=== PATIENT | female | born 1940 | race Caucasian/White ===

== ENCOUNTER → 2017-06-23 | Outpatient (CLI) | payer OTHER ==
[~2017-06-23] MED LIST: APAP/HYDROCODON1 T13 PO; CARAFATE1 GM PO; CLONIDINE0.1 M1 PO; HEP5I SC; IPRATROPIUM BROM3 M2 HHN; LEVOFLOXACIN500 M1 PO; MEDDP PO; NIFEDIAC CC PO; PANTOPRAZOLE SO40 M1 PO; PHEDML PO; PRI20 PO; SIMVASTATIN20 M1 PO; SPIRIVA18 MC1; SYMBICORT1 AE2; XAN5 PO; ZOFI IV
== END | disposition home or self-care (01) ==
LOC: RD 15:53
DX: J20.9 Acute bronchitis, unspecified (principal); R05 Cough

== ENCOUNTER 2017-12-24 11:57 | Emergency (ER) | payer OTHER ==
[~2017-12-24] VITALS: Ht 160 cm; Wt 47.8 kg
[2017-12-24 12:16] VITALS: Ht 160 cm; Wt 47.8 kg
[2017-12-24 13:26] LABS: BASOPHIL % 0.4 % (0-2); PLATELET COUNT 179 x10^3mcL (130-400); RED CELL DISTRIBUTION WIDTH 14.2 % (11.5-14.5)
[2017-12-24 13:35] LABS: CALCIUM 8.9 mg/dL (8.5-10.1); CARBON DIOXIDE 27.3 mmol/L (21-32); CHLORIDE SERUM 102 mmol/L (98-107); CREATININE SERUM 0.8 mg/dL (0.6-1.0); GLUCOSE SERUM 103 mg/dL (74-106); POTASSIUM SERUM 4.3 mmol/L (3.5-5.1); SODIUM SERUM 138 mmol/L (136-145)
[2017-12-24 13:40] LABS: ALBUMIN 3.7 g/dL (3.4-5.0); ALKALINE PHOSPHATASE 65 U/L (46-116); ALT/SGPT 18 U/L (14-59); AST/SGOT 18 U/L (15-37); BILIRUBIN TOTAL 0.4 mg/dL (0.20-1.00); TOTAL PROTEIN, SERUM 7.2 g/dL (6.4-8.2)
[2017-12-24 13:54] LABS: CHOLESTEROL 229 mg/dL (<200); HDL CHOLESTEROL 120 mg/dL (40-60)
[2017-12-24 14:01] LABS: microscopic required? NO
[2017-12-24 14:34] LABS: UA SPECIFIC GRAVITY <=1.005 (1.005-1.035); urine erythrocyte NEGATIVE (NEGATIVE)
[2017-12-24 16:09] VITALS: BP 155/94
== END 2017-12-24 16:09 | disposition home or self-care (01) ==
LOC: ED 11:57
PROVIDERS: Emergency Medicine
DX: J44.1 Chronic obstructive pulmonary disease with (acute) exacerbation (principal); I10 Essential (primary) hypertension; E78.00 Pure hypercholesterolemia, unspecified; R11.2 Nausea with vomiting, unspecified; Z90.49 Acquired absence of other specified parts of digestive tract; Z88.1 Allergy status to other antibiotic agents; Z88.3 Allergy status to other anti-infective agents
CPT/HCPCS: 83880; J2405; J7030; Q0092

== ENCOUNTER 2018-08-31 15:35 | Inpatient (IN) | payer OTHER ==
[~2018-08-31] VITALS: Ht 160 cm; Wt 53.7 kg
[2018-08-31 16:00] VITALS: Ht 160 cm; Wt 53.7 kg
--- NOTE | 2018-08-31 16:33 | NUR ---
PT HERE FOR C/O SOB. PT HAS HX OF COPD. PT STATES SHE HAS BEEN SICK THE LAST FEW DAYS AND HAS BEEN USING HER NEBULIZER AT HOME AND USED HER ALBUTEROL INHALER BEFORE SHE CAME IN AND SAID THAT IT PROVIDED SOME RELIEF. PT HAS EQUAL AND UNLABORED CHEST RISE. NO DISTRESS NOTED AT THIS TIME. DAUGHTER AT BEDSIDE. O2 SAT AT 96% RA
--- NOTE | 2018-08-31 16:38 | NUR ---
PT AMBULATING TO RESTROOM WITH DAUGHTER FOR URINE SPECIMEN.
[2018-08-31 17:40] LABS: UA SPECIFIC GRAVITY <=1.005 (1.005-1.035); microscopic required? YES; urine erythrocyte TRACE (NEGATIVE)
--- NOTE | 2018-08-31 17:49 | NUR ---
PT REQUESTED TO USE RESTROOM PRIOR TO IV ESTABLISHMENT.PT ALLOWED LAB TO DRAW LABS
[2018-08-31 18:16] LABS: BASOPHIL % 0.3 % (0-2); PLATELET COUNT 147 x10^3mcL (130-400)
[2018-08-31 18:18] LABS: CALCIUM 8.6 mg/dL (8.5-10.1); CHLORIDE SERUM 106 mmol/L (98-107); CREATININE SERUM 0.7 mg/dL (0.6-1.0); GLUCOSE SERUM 78 mg/dL (74-106); POTASSIUM SERUM 4.3 mmol/L (3.5-5.1); SODIUM SERUM 139 mmol/L (136-145)
[2018-08-31 18:23] LABS: ALBUMIN 3.1 g/dL (3.4-5.0); ALKALINE PHOSPHATASE 51 U/L (46-116); ALT/SGPT 16 U/L (14-59); AST/SGOT 16 U/L (15-37); BILIRUBIN TOTAL 0.3 mg/dL (0.20-1.00); TOTAL PROTEIN, SERUM 6.5 g/dL (6.4-8.2)
--- NOTE | 2018-08-31 18:30 | NUR ---
LYING IN GURNEY WITH DAUGHTER AT BEDSIDE. HOB UP 45 DEG. CALL LIGHT REMAINS IN REACH
--- NOTE | 2018-08-31 19:14 | NUR ---
REPORT GIVEN TO SHANEKA LEE
[2018-08-31] MEDS ORDERED: VENTOLIN H0.09 MG/A1 INH (20:21)
[2018-08-31] MEDS ORDERED: FLUOXETINE HYDR20 M2 PO (20:22)
[2018-08-31] MEDS ORDERED: RANITIDINE HCL300 MG PO (20:24)
[2018-08-31] MEDS ORDERED: EVISTA60 MG PO (20:25)
--- NOTE | 2018-08-31 20:35 | NUR ---
AZITHROMYCIN ABX HELD DUE TO ERYTHROMYCIN ALLERGY. DR SHER CRAVEN.
--- NOTE | 2018-08-31 20:43 | NUR ---
PT REPORT CALLED TO SEUN LEE TO ASSUME PT CARE.
[2018-08-31 21:19] LABS: CHOLESTEROL/HDL RATIO 1.8; PHOSPHOROUS 2.7 mg/dL (2.5-4.9)
[2018-08-31 21:29] LABS: T3 TOTAL 1.17 ng/mL
[2018-08-31 21:30] LABS: FREE T4 1.02 ng/dL (0.76-1.46)
--- NOTE | 2018-08-31 22:05 | NUR ---
PT GIVEN AZITHROMYCIN ORDER PER DR OLIVAREZ AND OK FROM PT. PT ALLERGY TO ERYTHROMYCIN IS ACTUALLY ADVERSE REACTION OF VOMITING. PT AWARE OF POTENTIAL SIDE EFFECTS AND OK TO GIVE MEDICATION.
--- NOTE | 2018-08-31 22:08 | NUR ---
PT TRANSFERRED TO [address] BY [facility] BY TIANA RN AND JAYY EMT. PT ON SUPPLY CHAIN DEVELOPMENT MANAGER FOR TRANSPORT. PT AOX4, RESP EVEN AND UNLABORED, NO ACUTE DISTRESS NOTED. PT ACCEPTED BY SEUN FOR BEDSIDE HANDOFF.
[2018-08-31 22:49] VITALS: BP 142/85
--- NOTE | 2018-08-31 22:52 | NUR ---
RECEIVED PT FROM ED VIA BORIS. ORIENTED PT TO ROOM AND SURROUNDINGS. IV NOTED TO LFA PATENT AND INTACT. TELE 21 PLACED ON PT READING ST WITH PACS. INSTRUCTED PT ON THE USE OF CALL LIGHT FOR ASSISATNCE. ENDORSED PT TO PRIMARY NURSE SEUN
[2018-08-31 22:57] VITALS: BP 142/85
--- NOTE | 2018-08-31 23:04 | NUR ---
PT REPORTS TAKING 0.5MG XANAX AT HOME. DR. LINDSEY MADE AWARE. PT CURRENTLY EXPERIENCING SOME ANXIETY, WILL WAIT FOR ORDERS.
--- NOTE | 2018-09-01 00:09 | NUR ---
PT RESTING IN BED WITH EYES CLOSED. NO INDICATIONS OF PAIN. BREATHING E/U ON 2L OXYGEN NC. CALL LIGHT WITHIN REACH. DAUGHTER AT BEDSIDE. WILL CONTINUE TO MONITOR.
[2018-09-01 05:15] VITALS: BP 111/49
[2018-09-01 06:00] LABS: BASOPHIL % 0.3 % (0-2); PLATELET COUNT 152 x10^3mcL (130-400); RED CELL DISTRIBUTION WIDTH 13.7 % (11.5-14.5)
--- NOTE | 2018-09-01 06:06 | NUR ---
PT HAD RESTFUL NIGHT. DAUGHTER REMAINS AT BEDSIDE. NO CHANGES OVERNIGHT. BREATHING E/U ON 2L OXYGEN NC. NO SIGNS OF PAIN NOTED. ALL NEEDS MET AND ATTENDED TO. CALL LIGHT WITHIN REACH. WILL CONTINUE TO MONITOR.
[2018-09-01 06:24] LABS: CALCIUM 8.3 mg/dL (8.5-10.1); CARBON DIOXIDE 25.4 mmol/L (21-32); CHLORIDE SERUM 109 mmol/L (98-107); CREATININE SERUM 0.7 mg/dL (0.6-1.0); GLUCOSE SERUM 155 mg/dL (74-106); MAGNESIUM 1.9 mg/dL (1.8-2.4); PHOSPHOROUS 3.1 mg/dL (2.5-4.9); POTASSIUM SERUM 3.9 mmol/L (3.5-5.1); SODIUM SERUM 142 mmol/L (136-145)
--- NOTE | 2018-09-01 07:36 | NUR ---
RECEIVED AWAKE, ALERT AND ORIENTED. IN NO ACUTE RESP. DISTRESS. NO C/O PAIN OR DISCOMFORT. CALL LIGHT WITHIN REACH. WILL CONTINUE WITH PLAN OF CARE.
--- NOTE | 2018-09-01 09:24 | NUR ---
C/O NAUSEA, NO VOMITING. MEDICATED WITH ZOFRAN.
[2018-09-01 09:48] VITALS: BP 133/65
--- NOTE | 2018-09-01 13:07 | NUR ---
TRISHA. FAIRLY WITH LUNCH, NO C/O N/V AT THIS TIME. PT IN NO DISTRESS. REPORTED NO PAIN OR DISCOMFORT.
[2018-09-01 13:15] VITALS: BP 127/53
--- NOTE | 2018-09-01 15:16 | NUR ---
PATIENT WAS SLEEPING IN BED. NO DISTRESS NOTED. WILL CONTINUE TO MONITOR.
--- NOTE | 2018-09-01 16:15 | NUR ---
PT C/O DRY COUGH, MEDICATED WITH ROBITUSSIN W/COD PER ORDER. NO ACUTE RESP. DISTRESS NOTED AT THIS TIME.
[2018-09-01 18:27] VITALS: BP 136/62
--- NOTE | 2018-09-01 18:54 | NUR ---
PT REPORTED FAIR RELIEF OF COUGH. REMAINS IN NO ACUTE DISTRESS. AWAKE, ALERT. NO C/O PAIN OR DISCOMFORT AT THIS TIME. HL PATENT. CALL LIGHT WITHIN REACH. WILL BE ENDORSED TO INCOMING SHIFT.
--- NOTE | 2018-09-01 19:41 | NUR ---
RECEIVED PT FROM ROSA NUÑEZ. RESP EQUAL AND UNLABORED, NO REPORTS OF CP OR SOB. INSTRUCTED PT ON THE USE OF CALL LIGHT FOR ASSISTANCE. BED IN LOWEST POSITION AND SIDE RAILS UPX 2
[2018-09-01 21:46] VITALS: BP 131/63
--- NOTE | 2018-09-02 00:26 | NUR ---
IN BED WITH EYES CLOSED. RESP EQUAL AND UNLABORED, NO DISTRESS NOTED. WILL CONTINUE TO MONITOR
--- NOTE | 2018-09-02 04:29 | NUR ---
RECEIVED PT REPORT. PT SEEN REST ON BED. COMPLAIN OF NAUSEA. WILL PROVIDE MED PER ORDER. PT BREATHING ON RA, EVEN, UNLABORED. IV SITE SALINE LOCK AT THIS TIME.
[2018-09-02 05:44] VITALS: BP 122/62
[2018-09-02 06:55] LABS: CALCIUM 7.8 mg/dL (8.5-10.1); CARBON DIOXIDE 26.3 mmol/L (21-32); CHLORIDE SERUM 108 mmol/L (98-107); CREATININE SERUM 0.6 mg/dL (0.6-1.0); GLUCOSE SERUM 93 mg/dL (74-106); PHOSPHOROUS 3.2 mg/dL (2.5-4.9); POTASSIUM SERUM 4.3 mmol/L (3.5-5.1); SODIUM SERUM 142 mmol/L (136-145)
[2018-09-02 07:15] LABS: BASOPHIL % 0.4 % (0-2); PLATELET COUNT 148 x10^3mcL (130-400); RED CELL DISTRIBUTION WIDTH 14.2 % (11.5-14.5)
--- NOTE | 2018-09-02 07:32 | NUR ---
PT REPORTED AFTER LAST DOSE IV MED SHE STARTED FEELING NAUSEA. ZOFRAN RESOLVE SOME NAUSEA. PT REPORT SHAKING HANDS. PT'S GLUCOSE CHECK 88, ORANGE JUICE GIVEN. PT'S VS: 156/77, HR 86 BPM, TEMP 99.2, O2 SAT 92% ON RA. PT ASK FOR ANXIET MED, WILL GIVE PER ORDER. PT ALSO REQUIRE HER HOME MED PROTONIX AND SUCRALFATE. CALLED AND MADE MACHINE ASSISTANT JILLIAN AWARE ABOUT PT'S CONDITION AND OBTAINED TELEPHONE ORDER PROTONIC 20MG IV, SUCRALFATE 1GM. WILL CONTINUE TO MONITOR.
[2018-09-02 07:47] VITALS: BP 156/77
[2018-09-02 09:08] VITALS: BP 138/87
--- NOTE | 2018-09-02 10:29 | NUR ---
OLD IV LEAKING, NEW IV INSERTED ON RFA, PATENT. PT TOLERATE WELL. SALINE LOCK PER ORDER AT THIS TIME.
[2018-09-02 12:55] VITALS: BP 128/66
[2018-09-02 17:35] VITALS: BP 138/88
--- NOTE | 2018-09-02 18:34 | NUR ---
PT REST ON BED, PT STATED HER NAUSEA GOING AWAY. NO COMPLAIN OF SOB. PT BREATHING ON RA /O2 2L VIA NC. MILD SHANKING HAND NOTED. PT STATED THIS HAPPEN SOMETIMES. IV SITE PATENT, INTACT. SALINE LOCK PER ORDER. WILL ENDORSE PT'S CARE TO COMING NURSE.
--- NOTE | 2018-09-02 19:23 | NUR ---
PT REST ON BED, BREATHING ON RA, NO COMPLAIN OF SOB. ENDORSE PT CARE TO RECEIVING NURSE.
--- NOTE | 2018-09-02 19:40 | NUR ---
PT. AWAKE, ALERT, ORIENTED X4. DENIES HEADACHE OR DIZZINESS AT THIS TIME. PT. ON 2L/NC. RESP. EVEN, UNLABORED. PT. STATED THAT SHE SOMETIMES GETS SOB W/ INCREASED ACTIVITY OR WHEN SHE GETS OOB TO GO BRP. BREATH SOUNDS DIMINISHED HIEU. PT. NSR W/ OCCASSIONAL PAC. DENIES CHESTPAIN, TELE #21. NO EDEMA NOTED TO EXTREMITIES. PEDAL PULSES MODERATE. IV SITE HEPLOCKED RFA. CALL LIGHT WITHIN REACH.
[2018-09-02 20:36] VITALS: BP 137/75
--- NOTE | 2018-09-03 00:25 | NUR ---
PT. W/ EYES CLOSED, APPEARS TO BE SLEEPING. CALL LIGHT REMAINS WITHIN REACH. WILL CONTINUE TO MONITOR.
[2018-09-03 05:19] VITALS: BP 153/65
--- NOTE | 2018-09-03 06:20 | NUR ---
PT. RESTING QUIETLY. REMAINS ON 2L/NC. NO RESP. DISTRESS THROUGHOUT THE NIGHT. IV SITE INTACT. CALL LIGHT WITHIN REACH. WILL ENDORSE PT. CARE TO INCOMING NURSE.
--- NOTE | 2018-09-03 07:30 | NUR ---
RECEIVED PATIENT AWAKE AND ALERT AND ORIENTED. MO C/O OF SOB NOTED THIS MORNING.MONITOR SHOWS #21 ST 102. NO C/O OF CHEST PAIN AT THIS TIME.
[2018-09-03 07:45] LABS: BASOPHIL % 0.5 % (0-2); PLATELET COUNT 158 x10^3mcL (130-400)
[2018-09-03 08:11] LABS: CALCIUM 8.5 mg/dL (8.5-10.1); CARBON DIOXIDE 30.3 mmol/L (21-32); CHLORIDE SERUM 108 mmol/L (98-107); CREATININE SERUM 0.6 mg/dL (0.6-1.0); GLUCOSE SERUM 97 mg/dL (74-106); MAGNESIUM 2.1 mg/dL (1.8-2.4); POTASSIUM SERUM 4.2 mmol/L (3.5-5.1); SODIUM SERUM 144 mmol/L (136-145)
--- NOTE | 2018-09-03 09:00 | NUR ---
SEEN BY THIS MORNING AND WANTS TO WEAN HER O2 AT 2L TO 1L. TOLD DR. WHITMORE THAT SHE'S O2 AT 2L AT HOME AND NEEDED AND AT NIGHT.
--- NOTE | 2018-09-03 09:05 | NUR ---
REGIS ZAVALA MADE AWARE THAT LAB CALLED PER JACK THAT HER WBC WENT DOWN TO 3.7 FROM 4.9 AND SHE'S ON SEPSIS PROTOCOL AND V/S STABLE.
--- NOTE | 2018-09-03 09:27 | NUR ---
BREATHING GIVEN BY RT AND PER RT SHE'S SAT AT 94% AT 1L N/C.
[2018-09-03 10:13] VITALS: BP 134/52
--- NOTE | 2018-09-03 11:30 | NUR ---
REPORT GIVEN TO LUARY LEE FOR CONTINUED CARE.
[2018-09-03 14:17] VITALS: BP 127/54
--- NOTE | 2018-09-03 15:30 | NUR ---
PT RESTING AT THIS TIME. DENIES ANY DISCOMFORT. CALL LIGTH IN REACH NEEDS ATTENDED TO.
[2018-09-03 15:44] VITALS: BP 127/54
[2018-09-03 17:20] VITALS: BP 110/49
--- NOTE | 2018-09-03 18:02 | NUR ---
PT RESTING AT THIS TIME. DENIES ANY DISCOMFORT. CALL LIGHT IN REACH NEEDS ATTENDED TO.
--- NOTE | 2018-09-03 19:17 | NUR ---
PT. AWAKE, ALERT, ORIENTED X4. DENIES HEADACHE OR DIZZINESS. PT. ON 2L/NC AT THIS TIME. BREATH SOUNDS CLEAR THROUGHOUT LUNG [place], BLL DIMINISHED. RESP. EVEN, UNLABORED. NO SOB NOTED. DENIES CHESTPAIN OR DISCOMFORT. NSR ON TELE 21. DENIES CHESTPAIN OR DISCOMFORT. TRACE EDEMA NOTED TO BLE. PEDAL PULSES MODERATE. IV HEPLOCKED, SITE INTACT. CALL LIGHT WITHIN REACH.
[2018-09-03 21:50] VITALS: BP 135/62
--- NOTE | 2018-09-04 00:52 | NUR ---
PT. RESTING QUIETLY. EYES CLOSED AND APPEARS TO BE SLEEPING. CALL LIGHT REMAINS WITHIN REACH.
[2018-09-04 05:30] VITALS: BP 119/57
--- NOTE | 2018-09-04 06:37 | NUR ---
PT. HAD UNEVENTFUL NIGHT. NO RESP. DISTRESS. USES NC AT 1L NEEDED. PT. COMFORTABLE THIS MORNING. IV SITE REMAINS INTACT. CALL LIGHT WITHIN REACH. WILL ENDORSE PT. CARE TO INCOMING NURSE.
[2018-09-04 07:00] LABS: BASOPHIL % 0.7 % (0-2); PLATELET COUNT 156 x10^3mcL (130-400); RED CELL DISTRIBUTION WIDTH 14.2 % (11.5-14.5)
[2018-09-04 07:17] LABS: CALCIUM 8.7 mg/dL (8.5-10.1); CARBON DIOXIDE 31.4 mmol/L (21-32); CHLORIDE SERUM 106 mmol/L (98-107); CREATININE SERUM 0.8 mg/dL (0.6-1.0); GLUCOSE SERUM 86 mg/dL (74-106); POTASSIUM SERUM 4.8 mmol/L (3.5-5.1); SODIUM SERUM 140 mmol/L (136-145)
--- NOTE | 2018-09-04 07:30 | NUR ---
PT ENDORSE TO ME THIS MORNING. LAYING IN BED RESTING. AA/O X4 BREATHING EVEN AND UNLABORED ON 1L NC AT TIMES RA. DENIES ANY SOB/ NO ACUTE RESP DISTRESS NOTED. TELE 21 HR 79/ SR. DENIE ANY CP OR PRESSURE. GEN WEAKNESS / AMB / KNOWS TO CALL FOR ASSIST. VOIDS FREELY. CARMINA SOUNDS ACTIVE IN ALL FOUR QUADS. IV TO THE RFA INTACT AND PATENT/ HEPLOCKED. CALL LIGHT IN REACH. BED IN LOW POSITTION. WILL CONTINUE PLAN OF CARE.
--- NOTE | 2018-09-04 08:40 | NUR ---
PT C/O NV, MEDICATED PER EMAR. WILL CONTINUE TO MONITOR.
[2018-09-04 10:06] VITALS: BP 138/64
[2018-09-04 11:32] VITALS: BP 138/64
--- NOTE | 2018-09-04 12:52 | NUR ---
EXPLAINED DISCHARGE INSTRUCTIONS, CONTINUED MEDS, FOLLOW UP APPOINTMENT PT NEEDS TO MAKE WITH PRIMARY DOC. PT LISSETT STATED, THEY HAVE AN APPOINTMENT WITH ASSISTANT PROFESSOR OF ENGLISH ON 09/11. REMOVED IV TO RFA, CATHETER TIP INTACT, NO REDNESS OR SWELLING NOTED. REMOVED TELE 21 AND RETURNED. LIS[place]T [place]/SIGNED ALL DOCUMENTS. WILL CONTINUE PLAN OF CARE.
--- NOTE | 2018-09-04 13:21 | NUR ---
HELEN JUAN WHEELED PT DOWN TO DISCHARGE LOBBY. BREATHING EVEN AND UNLABORED ON RA. NO ACUTE RESP DISTRESS OR SOB NOTED. WILL BE DRIVING HER HOME. DENIES ANY CP OR PRESSURE. DISCHARGE.
== END 2018-09-04 13:20 | disposition home or self-care (01) | DRG 177 ==
LOC: ED 15:35 → DU 20:13
PROVIDERS: Emergency Medicine; General Practice; ADMIT Internal Medicine
DX: J69.0 Pneumonitis due to inhalation of food and vomit (principal); J96.21 Acute and chronic respiratory failure with hypoxia; J44.1 Chronic obstructive pulmonary disease with (acute) exacerbation; J98.11 Atelectasis; E44.0 Moderate protein-calorie malnutrition; Z68.1 Body mass index [BMI] 19.9 or less, adult; I11.9 Hypertensive heart disease without heart failure; I25.10 Atherosclerotic heart disease of native coronary artery without angina pectoris; I25.2 Old myocardial infarction; E78.5 Hyperlipidemia, unspecified; M81.0 Age-related osteoporosis without current pathological fracture; F41.1 Generalized anxiety disorder; F32.9 Major depressive disorder, single episode, unspecified; F17.210 Nicotine dependence, cigarettes, uncomplicated; Z99.81 Dependence on supplemental oxygen
CPT/HCPCS: 82962; 83880; 84439; 85378; 87804; 94150; J0456; J0696; J2405; J2930; J7030; J7620; J7626; Q0092

== ENCOUNTER 2019-01-13 20:39 | Inpatient (IN) | payer OTHER ==
[~2019-01-13] VITALS: Ht 152.4 cm; Wt 49.9 kg
[~2019-01-13 20:39] MED LIST changes: +EVISTA60 MG PO; +FLUOXETINE HYDR20 M2 PO; +RANITIDINE HCL300 MG PO; +VENTOLIN H0.09 MG/A1 INH
[2019-01-13 20:48] VITALS: Ht 152.4 cm; Wt 49.9 kg
[2019-01-13 22:44] LABS: BASOPHIL % 0.5 % (0-2); PLATELET COUNT 153 x10^3mcL (130-400)
[2019-01-13 22:53] LABS: CALCIUM 8.9 mg/dL (8.5-10.1); CARBON DIOXIDE 25.6 mmol/L (21-32); CHLORIDE SERUM 99 mmol/L (98-107); CREATININE SERUM 0.8 mg/dL (0.6-1.0); GLUCOSE SERUM 115 mg/dL (74-106); POTASSIUM SERUM 4.1 mmol/L (3.5-5.1); SODIUM SERUM 132 mmol/L (136-145)
[2019-01-13 23:06] LABS: ALKALINE PHOSPHATASE 61 U/L (46-116); ALT/SGPT 17 U/L (14-59); AST/SGOT 12 U/L (15-37); BILIRUBIN TOTAL 0.36 mg/dL (0.20-1.00); CHOLESTEROL 193 mg/dL (<200); LIPASE 79 IU/L (73-393); T4(THYROXINE) 8.1 ug/dL (4.7-13.3); TOTAL PROTEIN, SERUM 6.3 g/dL (6.4-8.2)
[2019-01-13 23:08] LABS: ALBUMIN 2.7 g/dL (3.4-5.0); HDL CHOLESTEROL 92 mg/dL (40-60)
--- NOTE | 2019-01-13 23:10 | NUR ---
PT TO ED FOR EVAL OF INCREASED SOB X 2 WEEKS. PT STATES SHE HAS NOTICED THAT SHE IS BECOMING MORE SOB WHILE WALKING. DENIES ANY CP. PT STATES FAMILY MEMBER NORMALLY MONITORS VITAL SIGNS AND HE TOLD HER THAT HER PULSE RATE HAD BEEN HIGH AND 02 SAT LOW. PT TO ROOM 3. CHANGED INTO GOWN. PLACED ON CM. IV STARTED. MSE COMPLETED BY DR. PURCELL.
--- NOTE | 2019-01-13 23:12 | NUR ---
BREATHING TREATMENT COMPLETED. 02 BY JUDSON. NO CP. SKIN WARM AND DRY. PT. DAUGHTER AT BEDSIDE. CONTINUE TO MONITOR.
[2019-01-13 23:28] LABS: microscopic required? NO
[2019-01-14] VITALS (7 sets, daily range): BP systolic 117–146; BP diastolic 63–80
[2019-01-14] MEDS ORDERED: SYMBICORT1 AE3 INH (00:01)
--- NOTE | 2019-01-14 00:03 | NUR ---
PT RESTING COMFORTABLY ON GURNEY EYES CLOSED. BREATHING UNLABORED. PT STATES SHE IS COMFORTABLE AT THIS TIME. CONTINUE TO MONITOR.
[2019-01-14 00:04] LABS: UA SPECIFIC GRAVITY <=1.005 (1.005-1.035); urine erythrocyte NEGATIVE (NEGATIVE)
[2019-01-14 00:13] LABS: AMPHETAMINE QUAL UR NONE DETECTED (See below)
--- NOTE | 2019-01-14 01:01 | NUR ---
REPORT TO KEISHA.
--- NOTE | 2019-01-14 01:24 | NUR ---
RECEIVED PT FROM ED VIA [email or web address]. ORIENTED PT TO ROOM AND SURROUNDINGS. IV NOTED TO RFA PATENT AND INTACT. TELE 10 PLACED ON PT READING SR WITH PVC. INSTRUCTED PT ON THE USE OF CALL LIGHT FOR ASSISTANCE. ENDORSED PT TO PRIMARY NURSE KEISHA
--- NOTE | 2019-01-14 01:35 | NUR ---
RECIEVED PT FROM SURU RN IN NO ACUTE DISTRESS. ORIENTED TO ROOM. BED IN LOWEST POSITION, 2 SIDE RAILS UP, CALL LIGHT IN REACH. INSTRUCTED TO CALL FOR ASSISTANCE.
[2019-01-14 01:42] LABS: CHOLESTEROL/HDL RATIO 2.1
[2019-01-14 01:48] LABS: T3 TOTAL 0.85 ng/mL
[2019-01-14 01:53] LABS: FREE T4 0.97 ng/dL (0.76-1.46); FREE THYROXINE INDEX 2.7 ug/dL (1.4-4.5); T4(THYROXINE) 8.4 ug/dL (4.7-13.3)
[2019-01-14 06:36] LABS: BASOPHIL % 0.1 % (0-2); PLATELET COUNT 155 x10^3mcL (130-400); RED CELL DISTRIBUTION WIDTH 13.8 % (11.5-14.5)
[2019-01-14 06:47] LABS: CALCIUM 8.7 mg/dL (8.5-10.1); CARBON DIOXIDE 23.7 mmol/L (21-32); CHLORIDE SERUM 102 mmol/L (98-107); CREATININE SERUM 0.8 mg/dL (0.6-1.0); GLUCOSE SERUM 211 mg/dL (74-106); MAGNESIUM 2.2 mg/dL (1.8-2.4); PHOSPHOROUS 3.4 mg/dL (2.5-4.9); POTASSIUM SERUM 4.3 mmol/L (3.5-5.1); SODIUM SERUM 137 mmol/L (136-145)
--- NOTE | 2019-01-14 07:15 | NUR ---
RECEIVED PATIENT FROM COTTON GINNER NURSE. PATIENT IS RESTING WITH BOTH EYES CLOSED, AROUSABLE. TELE#10 SR, HR 83. PATIENT IS ON 2L NC, RESP E/U. FALL PREC IN PLACE. IV NOTED TO RFA, IVF INFUSING WELL ORDERED. NO S/S ERYTHEMA AT SITE. CALL LIGHT WITHIN EASY REACH. WILL CONTINUE PLAN OF CARE.
--- NOTE | 2019-01-14 12:57 | NUR ---
PATIENT RESTING EASY. REMAINS ON 2L NC, RESP E/U. PATIENT STATES ALL NEEDS ATTENDED TO AT THIS TIME. WILL CONTINUE TOP MONITOR.
--- NOTE | 2019-01-14 13:33 | NUR ---
TELE REMOVED AND RETURNED TO COMMUNICATIONS AGENT AT THIS TIME.
--- NOTE | 2019-01-14 13:45 | NUR ---
ECHO PENDING PT. IS VISITING WITH FAMILY AND DOES NOT WANT TO HAVE TEST DONE TODAY. WILL TRY TOMORROW.
--- NOTE | 2019-01-14 18:55 | NUR ---
PATIENT RESTING EASY. DENIES PAIN AND DISCOMFORT. RESP REMAIN E/U ON 2L NC. PATIENT CARE TO BE ENDORSED TO DECK MATE NURSE.
--- NOTE | 2019-01-14 20:29 | NUR ---
PT CURRENTLY RESTING IN BED, NO ACUTE DISTRESS. A/O X4. POOR VISION. NO TELE, MED/SURG. DENIES CHEST PAIN. PULSES PALPABLE IN ALL EXTREMITIES, TRACE BLE EDEMA NOTED. LUNG SOUNDS DIMINISHED IN BILATERAL BASES, DENIES SOB. O2 VIA NC AT 2L. BOWEL SOUNDS ACTIVE, LAST BM 01/13/19. VOIDING WELL. GENERALIZED WEAKNESS. AMBULATORY WITH ASSIST. ECCHYMOSIS NOTED TO BILATERAL ELBOWS. IV PATENT AND INTACT. BED IN LOWEST POSITION, SIDE RAILS UP X2, CALL LIGHT WITHIN REACH. WILL CONTINUE TO MONITOR.
--- NOTE | 2019-01-14 23:56 | NUR ---
PT CURRENTLY RESTING IN BED, NO ACUTE DISTRESS. WILL CONTINUE TO MONITOR.
[2019-01-15 04:47] VITALS: BP 117/59
--- NOTE | 2019-01-15 06:08 | NUR ---
PT SLEPT PERIODICALLY THROUGHOUT NIGHT, NO ACUTE DISTRESS. ALL NEEDS MET AND ATTENDED TO. NO SIGNIFICANT CHANGES. IV PATENT AND INTACT. BED IN LOWEST POSITION, SIDE RAILS UP X2, CALL LIGHT WITHIN REACH. WILL ENDORSE CARE TO ONCOMING NURSE.
[2019-01-15 06:42] LABS: CALCIUM 8.7 mg/dL (8.5-10.1); CARBON DIOXIDE 26.7 mmol/L (21-32); CHLORIDE SERUM 107 mmol/L (98-107); CREATININE SERUM 0.6 mg/dL (0.6-1.0); GLUCOSE SERUM 160 mg/dL (74-106); MAGNESIUM 2.2 mg/dL (1.8-2.4); PHOSPHOROUS 2.7 mg/dL (2.5-4.9); SODIUM SERUM 143 mmol/L (136-145)
[2019-01-15 06:52] LABS: PLATELET COUNT 150 x10^3mcL (130-400); RED CELL DISTRIBUTION WIDTH 13.7 % (11.5-14.5)
[2019-01-15 07:14] LABS: BASOPHIL % 0 % (0-2)
--- NOTE | 2019-01-15 07:35 | NUR ---
RECEIVED PATIENT FROM NIGHT NURSE. AWAKE, ALERT AND ORIENTED X 4. SITTING ON SIDE OF BED FOR BREAKFAST. SOB ON EXERTION. ON O2 VIA NC AT 2L/MIN.
--- NOTE | 2019-01-15 08:52 | NUR ---
SEEN BY DR WHITMORE. NO CHANGE IN ORDERS.
[2019-01-15 08:57] VITALS: BP 114/68
--- NOTE | 2019-01-15 10:57 | NUR ---
AT 1000 - PATIENT C/O ITCHINESS OR RUE ABOVE IV SITE DURING IV LEVAQUIN ADMINISTRATION. ALSO NOTED REDDNESS GOING UP THE ARM. INFUSION STOPPED. DR RAMÍREZ NOTIFIED. HE WILL DISCONTINUE THE ANTIBIOTIC. AT 1050 - ECHOCARDIOGRAM TECH AT BEDSIDE.
--- NOTE | 2019-01-15 14:28 | NUR ---
1. Recommend continuing regular diet.
--- NOTE | 2019-01-15 14:28 | NUR ---
Initial Nutrition Assessment: 239/A KASIA RIZO HR Dx: COPD exacerbation PMHx: COPD, [place] 2004, Gastritis, Hypertension, Macular degeneration, Anxiety, Osteoporosis PSHx: Cholecystectomy Labs: BG 160H, WBC 4.4L Meds: Colace, Lipitor, morphine, zofran Diet: Regular PO Intake: none documented Ht: 152.4 cm (60") Wt: 49.9 kg (109#) BMI: 21.5 kg/m2 Bed scale: 109# IBW: 100# (45 kg) %IBW: 109 UBW: 108# Age: 78/F Food Allergies: NKFA Skin: BUE ecchymosis Carloz: 20 Edema: none GI: Last BM: 01/14 Per H&P, Pt is a 78 year old female with PMH of COPD with 2ppd smoking history for 40 years (quit 22 years ago), hypertension, and MO in 2004 who presents to the ED with shortness of breath associated non-productive dry cough [address] weeks[address] RDN Visit (01/15): Patient said she did not eat most of her lunch as she does not like hospital food. Patient wanted tuna sandwich and that was ordered. FNS received consult for "COPD cachexia: on 01/14/19. Diet education on COPD was provided. Problem with: N/V/D/C: no Problems with: Chewing/Swallowing: no Current appetite: good Recent wt change: none %wt change: N/A Vitamin/Supplement use: none Special diet at home: regular Physical activity: none d/t COPD Nutrition education given: COPD diet education was provided and concept of small frequent nutrient dense meal was discussed. Food-drug interactions: lipitor- avoid grapefruit Education given: no Estimated Nutritional Needs Based on current body weight 49.9 kg Energy: 8499-9612 kcal/d (25-30 kcal/kg) Protein: 50-60 g/d (1.0-1.2g/kg)- preserve LBM Fluid: 0077-1644 ml/d (1 ml/kcal) or per doctor Nutrition Diagnosis 1. Inadequate oral intake related to poor PO as evidenced by self- reported PO <50%. Intervention 1. Recommend continuing regular diet. Monitor/Evaluate Goal: PO intake at least 75% of estimated needs Monitor: PO intake, Labs, GI function F/U in 2-3 days as high risk 01/17-
--- NOTE | 2019-01-15 15:13 | NUR ---
PATIENT ENCOURAGED IN USE OF INSENTIVE SPIROMETER.
[2019-01-15 17:24] VITALS: BP 110/70
--- NOTE | 2019-01-15 18:42 | NUR ---
AWAKE, ALERT AND ORIENTED. VSS. AFEBRILE. HAS EATEN DINNER. IV SALINE LOCKED. AMBULATES TO BATHROOM FOR TOILET NEEDS. WILL ENDORSE CARE TO NIGHT NURSE.
--- NOTE | 2019-01-15 19:10 | NUR ---
REPORT RECEIVED FROM DAY SHIFT RN. PATIENT WAS SEEN AND IS RESTING COMFORTABLY IN BED. NO DISTRESS NOTED. BREATHING EVEN ON 2L NC. NO SOB OR RESP DISTRESS NOTED. DENIES CHEST PAIN. NO C/O PAIN. IV TO THE RFA, 22G. SALINE LOCK. PATENT AND INTACT. COMFORT AND SAFETY MEASURES IN PLACE. BED IS LOCKED AND IN THE LOWEST POSITION. SIDE RAILS UP X2. CALL LIGHT IS WITHIN REACH. WILL CONTINUE TO MONITOR.
[2019-01-15 20:18] VITALS: BP 149/61
--- NOTE | 2019-01-15 23:21 | NUR ---
PATIENT IS RESTING COMFORTABLY IN BED. NO DISTRESS NOTED. BREATHING EVEN AND UNLABORED ON 2L NC. SAFETY MEASURES IN PLACE. CALL LIGHT IS WITHIN REACH. WILL CONTINUE TO MONITOR.
--- NOTE | 2019-01-16 03:32 | NUR ---
PATIENT IS RESTING IN WITH EYES CLOSED. NO DISTRESS NOTED. BREATHING EVEN ON 2L NC. SAFETY PRECAUTIONS IN PLACE. CALL LIGHT IS WITHIN REACH. WILL CONTINUE TO MONITOR.
--- NOTE | 2019-01-16 05:36 | NUR ---
PATIENT SLEPT IN LONG INTERVALS THROUGHOUT THE NIGHT. NO ACUTE CHANGES NOTED. BREATHING EVEN ON 2L NC. NO SOB OR RESP DISTRESS NOTED. NO C/O PAIN THROUGHOUT THE NIGHT. DENIES CHEST PAIN. I.S. AT BEDSIDE. ENCOURAGES PATIENT TO USE I.S WHEN AWAKE. IV TO THE RFA. SALINE LOCK. PATENT AND INTACT. NO REDNESS OR SWELLING NOTED. SAFETY MEASURES IN PLACE. CALL LIGHT IS WITHIN REACH. WILL CONTINUE TO MONITOR AND ENDORSE CARE TO DAY SHIFT RN.
[2019-01-16 05:49] VITALS: BP 120/67
[2019-01-16 06:36] LABS: CALCIUM 8.8 mg/dL (8.5-10.1); CARBON DIOXIDE 25.5 mmol/L (21-32); CHLORIDE SERUM 107 mmol/L (98-107); CREATININE SERUM 0.8 mg/dL (0.6-1.0); GLUCOSE SERUM 121 mg/dL (74-106); MAGNESIUM 2.3 mg/dL (1.8-2.4); PHOSPHOROUS 3.2 mg/dL (2.5-4.9); SODIUM SERUM 143 mmol/L (136-145)
[2019-01-16 06:43] LABS: BASOPHIL % 0.1 % (0-2); PLATELET COUNT 173 x10^3mcL (130-400); RED CELL DISTRIBUTION WIDTH 13.9 % (11.5-14.5)
--- NOTE | 2019-01-16 07:30 | NUR ---
RECEIVED PATIENT FROM NIGHT NURSE. SLEEPING. RESPIRATIONS REGULAR. ON O2 VIA NC AT 2L/MIN. CONTINUING TO MONITOR.
[2019-01-16 08:42] VITALS: BP 129/67
--- NOTE | 2019-01-16 09:21 | NUR ---
AT 0750 - SITTING ON SIDE OF BED EATING BREAKFAST. APPEARS TO HAVE GOOD APPETITE. AT 1915 - SEEN BY DR WHITMORE. NEW ORDERS RECEIVED INCLUDING ORDER FOR DULCOLAX SUPPOSITORY PRN FOR CONSTIPATION.
--- NOTE | 2019-01-16 10:43 | NUR ---
AT 1025 - PATIENT C/O ABDOMINAL PAIN. MEDICATED WITH NORCO PER EMAR. PATIENT REQUESTED PRUNE JUICE WHICH WAS ORDERED FROM [facility]. PATIENT IS AWARE OF DULCOLAX SUPPOSITORY ORDER. DOES NOT WISH TO HAVE IT NOW BUT MAY DECIDE TO HAVE IT LATER TODAY.
--- NOTE | 2019-01-16 13:01 | NUR ---
AT 1145 - REPORTS RELIEF OF ABDOMINAL PAIN AFTER RECEIVING NORCO. SCDS TO BLE IN PLACE. CALL PLACED FOR DR RAMÍREZ TO NOTIFY HIM THAT HOSPITAL DOES NOT CARRY KRANTHI HOSE HE ORDERED. AT 1250 - HAS EATEN LUNCH.
--- NOTE | 2019-01-16 13:27 | NUR ---
AFTER EATING LUNCH, PATIENT C/O "UPSET STOMACH". OFFERED ANTIEMETIC BUT PATIENT REFUSED AT THIS TIME.
--- NOTE | 2019-01-16 15:51 | NUR ---
AT 1420 - IV FROM RFA INFILTRATED. IV RESITED IN L WRIST AND SCHEDULED SOLUMEDROL ADMINISTERED PER EMAR. PATIENT REPORTS HAVING HAD A SMALL BM. STIL WANTS TO WAIT BEFORE DECIDING ON SUPPOSITORY.
[2019-01-16 18:11] VITALS: BP 142/70
--- NOTE | 2019-01-16 18:27 | NUR ---
PATIENT C/O NAUSEA AFTER EATING DINNER. MEDICATED WITH ZOFRAN PER EMAR. VSS AFEBRILE. IV SALINE LOCKED. RESPIRATIONS REGULAR WITH SOB ON EXERTION. REMAINS ON O2 VIA NC AT 2L/MIN & RT PROTTOCL FOR BREATHING TREATMENTS. ENCOURAGED USE OF INSENTIVE SPIROMETER. WILL ENDORSE CARE TO NIGHT NURSE.
--- NOTE | 2019-01-16 20:12 | NUR ---
RECEIVED IN BED AWAKE ALERT VERBAL DENIES PAIN, NO DISTRESS DIM LUNGS SOUND AT THE BASES, CONTINUOUS 02 @ 2L/MIN NC SATURATING 94% IV ACCESS @ LT WRIST PATENT NON INFIL, SCD'S OFF AT THIS TIME PER REQUEST, RESIDENT HAS BM X1 SMALL AMT STILL FEELING BLOATED AND TRYING TO HAVE BM, REFUSED DULCOLAX OFFER PRN FOR BOWEL MANAGEMENT, SHE WILL ASK LATER IF SHE NEEDS IT, SHIFT ASSESSMENT DONE, ATTENDED NEEDS CALL LIGHT AT REACH, CONT TO MONITOR.
[2019-01-16 20:26] VITALS: BP 123/66
--- NOTE | 2019-01-17 01:06 | NUR ---
PT AWAKE STATED HAVING STOMACH CRAMPS, HAS BM X1 PER PT BUT SMALL AMT, OFFERED SUPPOSITORY FOR CONSTIPATION BUT PT STILL REFUSING STATED IF IN THE MORNING NOTHING HAPPENS SHE WILL CONSIDER THE SUPPOSITORY, NORCO PO GIVE FOR C/O STOMACH PAIN/CRAMPS 12/16 PER ASSESSMENT, CONT TO MONITOR.
--- NOTE | 2019-01-17 05:45 | NUR ---
PT FELT NAUSEOUS NO VOMITING STILL REFUSING DULCOLAX SUPP OFFERED, ZOFRAN 4MG IVP GIVEN PER PRN ORDER, GOOD ORAL CARE EMPHASIZED, CONT TO MONITOR.
[2019-01-17 05:49] VITALS: BP 127/66
[2019-01-17 07:02] LABS: PLATELET COUNT 165 x10^3mcL (130-400); RED CELL DISTRIBUTION WIDTH 13.9 % (11.5-14.5)
--- NOTE | 2019-01-17 07:10 | NUR ---
RECEIVED PATIENT FROM ASPNET DEVELOPER NURSE. PATIENT IS AWAKE, ALERT AND ORIENTED. VISUAL IMPAIRMENT, FALL PREC IN PLACE. ON 2L NC, RESP E/U, DENIES SOB AT THIS TIME. SCATTERED ECCYMOSIS NOTED TO BUE. IV NOTED TO LEFT WRIST, SALINE LOCKED, NO S/S ERYTHEMA AT SITE. CALL LIGHT WITHIN EASY REACH. BED RAILS UP X2. BED IN LOWEST POSITION. WILL CONTINUE PLAN OF CARE.
[2019-01-17 07:20] LABS: BASOPHIL % 0 % (0-2)
[2019-01-17 07:25] LABS: CALCIUM 8.6 mg/dL (8.5-10.1); CHLORIDE SERUM 107 mmol/L (98-107); CREATININE SERUM 0.7 mg/dL (0.6-1.0); GLUCOSE SERUM 107 mg/dL (74-106); MAGNESIUM 2.4 mg/dL (1.8-2.4); POTASSIUM SERUM 4.3 mmol/L (3.5-5.1); SODIUM SERUM 142 mmol/L (136-145)
[2019-01-17 08:15] VITALS: BP 138/63
--- NOTE | 2019-01-17 13:17 | NUR ---
PATIENT RESTING EASY WITH NO C/O PAIN OR DISCOMFORT. PATIENT DENIES NAUSEA AT THIS TIME. WILL CONTINU TO CLOSELY MONITOR.
[2019-01-17 13:35] VITALS: BP 138/63
--- NOTE | 2019-01-17 16:25 | NUR ---
ALL DC INSTRUCTIONS GIVEN TO PATIENT AND DAUGHTER. FORMS SIGNED BY DAUGHTER(BLANCA PIRES) WITH CONSENT FROM PATIENT DUE TO PATIENTS VISUAL IMPAIRMENT. ALL PERSONAL BELONGINGS TAKEN WITH PATIENT. PATIENT DC'D AWAKE, ALERT AND ORIENTED. TAKEN DOWN TO DC OFFICE BY HELEN DAMIAN.
== END 2019-01-17 16:27 | disposition home or self-care (01) | DRG 189 ==
LOC: ED 20:39 → DU 01-14 00:09 → MU 01-14 00:09 → DU 01-14 01:13 → MU 01-14 13:06
PROVIDERS: Emergency Medicine; ADMIT Internal Medicine
DX: J96.21 Acute and chronic respiratory failure with hypoxia (principal); E43 Unspecified severe protein-calorie malnutrition; J44.1 Chronic obstructive pulmonary disease with (acute) exacerbation; Z68.1 Body mass index [BMI] 19.9 or less, adult; E87.1 Hypo-osmolality and hyponatremia; E78.00 Pure hypercholesterolemia, unspecified; I25.10 Atherosclerotic heart disease of native coronary artery without angina pectoris; D64.9 Anemia, unspecified; I10 Essential (primary) hypertension; M95.4 Acquired deformity of chest and rib; I25.2 Old myocardial infarction; Z99.81 Dependence on supplemental oxygen; Z87.891 Personal history of nicotine dependence
CPT/HCPCS: 36600; 83880; 84439; 94150; G0378; J1956; J2405; J2920; J2930; J3475; J3490; J7613; J7620; J7644; Q0092